=== PATIENT | male | born 1995 | race Caucasian/White ===

== ENCOUNTER 2022-10-14 10:48 | Emergency (ER) | payer OTHER, SELFPAY ==
--- NOTE | ~2022-10-14 | XR_ITS ---
EXAMINATION: XR chest 2V DATE: 10/14/2022 11:20 INDICATION: Shortness of breath TECHNIQUE: PA and lateral views of the chest are obtained. COMPARISON: None available FINDINGS: The lungs are free of acute opacities. Surgical clips and volume loss of the right hemithor ax are consistent with history of right partial pneumonectomy. No pleural effusion or pneumothorax. T he cardiomediastinal silhouette is normal. The visualized bones and soft tissues are unremarkable. IMPRESSION: 1. No acute cardiopulmonary abnormality. Reviewed, dictated and finalized at location L.
[2022-10-14 11:01] VITALS: BP 112/84; PULSE 79; RESP 16; TEMP 36.8; O2SAT 100
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
[2022-10-14 11:32] VITALS: PULSE 71; RESP 20; O2SAT 98
[2022-10-14] MEDS: ALBUTEROL SULFATE NEB 2.5 MG/3 ML INH INHALATION (11:50)
[2022-10-14] MEDS: methylPREDNISolone SOD SUCC 125 MG VIAL IM (11:50)
[2022-10-14] MEDS: IPRATROPIUM BR 0.02% INH SOLN 0.5 MG/2.5 ML VIAL INHALATION (11:50)
== END 2022-10-14 12:36 | disposition home or self-care (01) ==
PROVIDERS: Emergency Provider Nurse Practitioner Family
DX: T78.40XA Allergy, unspecified, initial encounter (principal)
CPT/HCPCS: 71046; 94640; 96372; 99213; G0463; J2930

== ENCOUNTER 2024-10-01 10:10 | Emergency (ER) | payer OTHER, SELFPAY ==
--- NOTE | 2024-10-01 10:19 | ED.GENADULT ---
HPI - General Adult General Chief complaint: Recheck/Abnormal Lab/Rx Stated complaint: Medication Refill Time Seen by Provider: 10/01/24 10:56 Mode of arrival: ambulatory Limitations: no limitations History of Present Illness HPI narrative: 28-year-old male presents with concern for medication refill. Reports he lost his PCP and is in between providers. He is currently trying to find a provider that takes his insurance. He has history of chronic injury and takes several medications for PTSD, pain and anxiety. He is looking for refill on his gabapentin, albuterol, escitalopram and prazosin. He reports has been 2 days since he had his medication. Related Data Home Medications Medication Instructions Recorded Confirmed Last Taken Type escitalopram oxalate 10 mg tablet mg 10/01/24 Unknown History gabapentin 300 mg capsule 300 mg PO TID 10/01/24 Unknown History gabapentin 600 mg tablet mg 10/01/24 Unknown History oxycodone PO 10/01/24 Unknown History prazosin 2 mg capsule mg 10/01/24 Unknown History Allergies Allergy/AdvReac Type Severity Reaction Status Date / Time shellfish derived Allergy Unknown Unknown Verified 10/01/24 10:24 Penicillins Allergy Rash Verified 10/01/24 10:24 adhesive tape AdvReac Rash Verified 10/01/24 10:24 Review of Systems Review of Systems: CONSTITUTIONAL: Denies malaise, chills, sweats, or fever. CARDIOVASCULAR: Denies chest pain, palpitations, or edema. RESPIRATORY: Denies cough or dyspnea. PSYCHIATRIC: Reports anxiety All systems reviewed & are unremarkable except as noted in HPI and below PMFSH Comments At time of signature, agree with nursing past medical, surgical, social and family history. There is no relevant family history pertinent to the presenting complaint Exam Narrative: GENERAL: Well-appearing, well-nourished, and in no acute distress. HEAD: Normocephalic, atraumatic. EYES: PERRLA, sclera clear, and EOMI. ENT: Nares clear. Mucous membranes moist. NECK: Supple. CHEST: No respiratory distress. Speaks in full sentences. HEART: Regular rate and rhythm. N SKIN: Warm, dry, no visible rash. NEURO: Alert and oriented x3. PSYCH: Normal mood and affect Course Course Emergency Course: Patient was advised that we cannot fill medications long-term. He was given 30 day refills. He was given resources for finding a primary and was referred to Dr. Wilkerson Patient is aware of, understands and agrees to treatment plan. Anticipatory guidance given. Patient agrees to follow-up as directed and is aware of reasons to seek care at the emergency department. Portions of this record may have been created with voice recognition software Level of Care: Express Care Visit Vital Signs Vital signs: Reviewed. Medical Decision Making MDM Narrative Medical decision making narrative: The patient was evaluated by myself in the express care. History is obtained from patient who is an independent historian and physical exam was performed. Available medical records were reviewed at this time. Exam findings show no acute concerns or changes; patient is non-toxic appearing and is in no distress. Patient is appropriate for outpatient treatment and follow-up. I have evaluated and discussed social determinants of health with the patient that could potentially impact subsequent diagnosis and treatment plans. Differential diagnosis and treatment plan were discussed with the patient. Patient agrees with discussion and after shared medical decision making agrees with plan of care. All questions were answered to the patient's satisfaction. Critical Care Time Critical Care Time Critical Care Time: No Discharge Plan Discharge Clinical Impression: Encounter for medication refill Patient Disposition: Home Condition: Stable Instructions: General Patient Instructions Additional Instructions: 1) Please follow-up with your primary care doctor for future refills. 2) If you have any urgent concerns please go to the ER. 3) Please continue taking your home medications as usual. Having an established primary care provider is essential to your health. Please call [phone] for help finding a primary care provider in your area that accepts your insurance. Patient Language: Occitan Prescriptions: New albuterol sulfate 90 mcg/actuation HFA aerosol inhaler 2 puff INHALATION QID PRN (Reason: shortness of breath or wheezing) Qty: 8.5 0RF prazosin 2 mg capsule 2 mg PO HS Qty: 30 0RF gabapentin 300 mg capsule 300 mg PO TID Qty: 90 0RF gabapentin 600 mg tablet 600 mg PO TID Qty: 90 0RF escitalopram oxalate 10 mg tablet 10 mg PO DAILY Qty: 30 0RF No Action albuterol sulfate 90 mcg/actuation HFA aerosol inhaler 2 puff inhalation QID PRN (Reason: shortness of breath or wheezing) Qty: 8.5 0RF gabapentin 600 mg tablet gabapentin 300 mg capsule 300 mg PO TID prazosin 2 mg capsule escitalopram oxalate 10 mg tablet oxycodone [OxyContin] PO Follow-up/Referrals: PHYSICIAN,SCREEN ROLLER [Primary Care Provider] - Zafar Wilkerson MD [Physician] - (Needs PCP) Time of Disposition: 11:06
[2024-10-01 10:20] VITALS: BP 134/98; PULSE 64; RESP 20; TEMP 36.4; O2SAT 100
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
--- OUTSIDE RECORDS SUMMARY | 2024-10-01 10:44 | XMS_ITS | Referral Summary ---
Author Organization [facility] Address [address] [place] [address] Care Team Providers Care Pulp Mill Operator Name Role Phone Raciel Littlejohn MD Unavailable [phone] Raciel Littlejohn MD Primary Care Provider + Adriana Breen MD Unavailable [phone] Allergies Active Allergy Reactions Criticality Noted Date [...] (06/03/2022): Added automatically from request for surgery [id number] Hypokalemia 01/31/2022 Assessment & Plan (01/31/2022 5:52 [...] (11/01/2019): Added automatically from request for surgery [id number] Slow transit constipation 02/19/2019 Assessment & Plan [...] 02/19/2019 Assessment & Plan (04/27/2019 2:09 PM INDEPENDENT TRADER): See rectal bleeding Blood in stool 01/19/2019 Assessment & Plan (01/19/2019 2:13 PM CDT): Will check CRP and ESR. Will have colonoscopy done to rule out IBD. Pt to follow up after colonoscopy to review results. Lower abdominal pain 01/19/2019 Assessment & Plan (04/27/2019 2:05 PM INDEPENDENT TRADER): Mostly occurs in RLQ about once a [...] (01/19/2019): Added automatically from request for surgery [id number] Assessment & Plan (04/27/2019 2:09 PM INDEPENDENT TRADER): Pt says overall, blood in stool has [...] (01/19/2019): Added automatically from request for surgery [id number] Hidradenitis 06/14/2018 Overview (06/14/2018): Added automatically from request for surgery [id number] Hidradenitis axillaris 02/15/2018 Closed fracture of metacarpal bone 09/29/2013 Overview (08/20/2016): Fracture of metacarpal Polysubstance abuse Immunizations Immunization Administration Dates Next Due Tdap 11/02/2019 Social History Tobacco Use Types Packs/Day Years [...] on file Legal Sex Male 11:29 PM INDEPENDENT TRADER Gender Identity Male 12/18/2019 5:23 PM CDT Sexual Orientation Straight 12/18/2019 5: 23 PM CDT Last Filed Vital Signs Vital Sign Reading Time Taken Comments Blood Pressure 120/82 04/25/2023 1:11 PM INDEPENDENT TRADER Pulse 92 04/25/2023 1:11 PM INDEPENDENT TRADER Temperature 36.9 C (98.4 F) 04/25/2023 1:11 PM INDEPENDENT TRADER Respiratory Rate 16 04/25/2023 1:11 PM INDEPENDENT TRADER Oxygen Saturation 98% 04/25/2023 1:11 PM INDEPENDENT TRADER Inhaled Oxygen Concentration - - Weight 87.5 kg (193 lb) 04/25/2023 1:11 PM INDEPENDENT TRADER Height 182.9 cm (6') 04/25/2023 1:11 PM INDEPENDENT TRADER Body Mass Index 26.18 04/25/2023 1:11 PM INDEPENDENT TRADER Plan of Treatment Not on file Procedures Procedure Name Priority Date/Time Associated Diagnosis [...] 11:40 AM CDT 01/08/2017 11:42 AM CDT us Raciel Littlejohn MD LAB MICROBIOLOGY - GENER AL ORDERABLES Final Result KOMAL [facility] [id number] Department [place] [address] from Last 3 Months or Most Recently Relevant to Health Maintenance Insurance [facility] CHOICE PLUS [facility] [place] [facility] Advance Directives For more information, please contact: [phone] * Full Code (Latest Code Status on [...] 1:23 PM 01/31/2019 7:54 PM Care Teams Pulp Mill Operator Relationship Specialty [place] [address] [place] [address] PCP - General 01/30/22 [place] [address] [place] [address] 11/01/19 [place] [address] [place] [address] Surgeon Colon and Rectal Surgery 06/11/22
--- OUTSIDE RECORDS SUMMARY | 2024-10-01 10:44 | XMS_ITS | CONTINUITY OF CARE DOCUMENT ---
Author Name shiloh matamoros Address Unknown Organization [facility] Address [address] [place] [address] [address] [place] [address] Phone [phone] Care Team Providers Care Award Machine Operator Name Role Phone Miguel Humphreys MD Unavailable AMOR OSWALD MD Unavailable [phone] AMOR OSWALD MD Unavailable PROBLEMS Condition Status Date Provider Notes ANEMIA, IRON DEFICIENCY; active Miguel murcia MD Exposure to SARS-associated coronavirus;neg igg active Miguel Humphreys MD B12 deficiency active Miguel Humphreys MD nml folate Syncope active Gabbi [place] Nerve pain active Miguel Humphreys MD DUE TO S TAB WOUND IN CHEST Screening active Miguel Humphreys MD neg mirlande dmill Vitamin D deficiency active Miguel Herrera D Thrombocytosis active Miguel Humphreys MD FAMILY HISTORY OF HEART DISEASE active Miguel Humphreys MD dad Hidradenitis active Migule Humphreys MD ENCOUNTERS Date Type Provider Location Encounter Diag nosis 6 - 6 In-person encounter Office Visit [facility] 9 - 9 In-person encounter Office Visit Miguel Humphreys MD [facility] Nerve painScreeningVitamin D deficiencyThrombocytosisFAMILY HISTORY OF HEART DISEASEHidradenitis VITAL SIGNS Date Observation Value Provider Body Mass Index (Ratio) 30.21 kg/m2 Hever dacosta Anson Odom blood pressure, cuff size regular David Costelloby blood pressure, diastolic 70 mm[Hg] David isty [place] blood pressure, systolic 122 mm[Hg] Davidi amna Costello pulse rate 87 /min Elizabeth Tayler oxygen saturation, oximetry 97 % Elizabeth respiratory rate E&M 19 /min Elizabeth Tayler blood pressure, resting No Javier ty weight E&M 222.8 [lb_av] Elizabeth height E&M 72 [in_i] Elizabeth weight E&M 175 [lb_av] Christina Sloan Body Mass Index (Ratio) 13.56 kg/m2 Izzy Humphreys MD blood pressure, resting No Javier neves blood pressure, cuff size regular David Costello pulse rate 91 /min Elizabeth Costello oxygen saturation, oximetry 100 % Elizabeth blood pressure, diastolic 70 mm[Hg] David Costello blood pressure, systolic 130 mm[Hg] Davidi amna Costello respiratory rate E&M 18 /min Elizabeth Tayler weight E&M 100 [lb_av] Elizabeth Tayler height E&M 72 [in_i] Elizabeth [place] RESULTS Date Observation Value Provider Reference Range Interpretation Location B-12, serum 265 pg/mL [facility] [id number] ferritin, serum 9 ng/mL [facility] 30-400 Low folate, serum 4.3 ng/mL [facility] >3.0 iron saturation percent, serum 3 % [facility] 15-55 Critical low iron, serum 16 ug/dL [facility] 38-169 Low iron binding capacity, unsaturated 507 ug/dL [facility] 111-343 High iron binding capacity, total 523 ug/dL [facility] 250-450 High basophil count, absolute 0.1 x10E3/uL [facility] 0.0-0.2 Eosinophil Absolute Count 0.5 X10E3/UL [facility] 0.0-0.4 High monocyte count, blood, automated 1.0 X10E3/UL [facility] 0.1-0.9 High lymphocyte count, blood, automated 3.3 X10E3/UL [facility] 0.7-3.1 High Absolute Neutrophils 4.4 X10E3/UL [facility] 1.4-7.0 basophils as percent of blood leukocytes 1 % [facility] Not Estab. eosinophils as percent of blood leukocytes 5 % [facility] Not Estab. monocytes as percent of blood leukocytes 11 % [facility] Not Estab. lymphocytes as percent of blood leukocytes 36 % [facility] Not Estab. neutrophils as percent of blood leukocytes 47 % [facility] Not Estab. platelet count 512 X10E3/UL [facility] 150-450 High red blood cell distribution width 14.6 % [facility] 11.6-15.4 mean corpuscular hemoglobin concentration, RBC 31.3 G/DL [facility] 31.5-35.7 Low mean corpuscular hemoglobin, RBC 22.4 pg [facility] 26.6-33.0 Low mean corpuscular volume, RBC 72 fL [facility] 79-97 Low hematocrit, blood 38.7 % [facility] 37.5-51.0 hemoglobin, blood 12.1 g/dL [facility] 13.0-17.7 Low erythrocyte (RBC) count 5.39 X10E6/UL [facility] 4.14-5.80 leukocyte count, blood 9.3 X10E3/UL [facility] 3.4-10.8 HISTORY OF MEDICATION USE Medication Status Instructions Dates Provider Indications Com ments FeroSul 325 mg (65 mg iron) tablet active TAKE 1 TABLET BY MOUTH EVERY DAY Christine Gruehayleenfkhang ferrous sulfate 325 mg (65 mg iron) tablet completed ONE PER DAY - Christine Gruenenfelder FERROUS SULFATE 325 (65 FE) MG ORAL TABLET completed ONE PER DAY - Elizabeth Lester VITAMIN B-12 1000 MCG ORAL TABLET active One tablet daily Miguel Humphreys MD VITAMIN D3 1.25 MG (36138 UT) ORAL CAPSULE active one capsule by mouth weekly Miguel Humphreys MD CYCLOBENZAPRINE HCL 10 MG ORAL TABLET completed as needed on hold - Williams Odom DO #90, 30 days supply, Prescribed by AMOR OSWALD, Filled 05/25/2020 GABAPENTIN 100 MG ORAL CAPSULE completed take one tablet by mouth three times daily on hold - Williams Odom DO #90, 30 days supply, Prescribed by AMOR OSWALD, Filled 06/12/2020 SOCIAL HISTORY Date Observation Value Provider Underweight no Williams babb DO number of grandchildren Miguel Orozco NP social history reviewed E&M revi ewed - no changes required Gianna Orozco NP smoking status Never smoker Elizabeth Lester Underweight yes Miguel Gaona social history E&M S moking History: Luis A estella has never smoked. Miguel Humphreys MD social history reviewed E&M revi ewed - no changes required Miguel Humphreys MD smoking status Never smoker Elizabeth Lester INSURANCE PROVIDERS Payer name Policy type / Coverage type [place] red green party ID [facility] [id number] Other [id number] TREATMENT PLAN Date Name Performer Cardiology:will supp lement r echeck iron levels prior to next ov Williams Odom DO Cardiology:normal 30 day holter monitor n ormal LVEF on echo w/o valvular abnormalities n ormal stress test will check carotids, stop gabapentin and flexeril, increase hydration/liberalize sodium in diet; to see if this helps and start iron supplement-may be medication problem, if recurrent syncope despite above may need ILR Williams Odom DO Cardiology: supplement Gianna singer [employer] Cardiology:supplement Gianna chahal [employer] Cardiology:will supplement Tahira Doyleal [employer] Cardiology:normal 30 day holter monitor n ormal LVEF on echo w/o valvular abnormalities n ormal stress test will check carotids, try to stop gabapentin and flexeril to see if this helps and start iron supplement-may be medication problem, if continues to may need ILR Gianna Orozco [employer] Cardiology Miguel Humphreys MD Cardiology Miguel Humphreys MD Cardiology Miguel Humphreys MD Cardiology Miguel Humphreys MD Cardiology:NEG CHOL AND TSH, NEG HEPPANEL AND HIV AND RPR,. NEG CRP AND ECHO AND COLON NEG HOLTER Miguel Humphreys MD Date Name IRON AND TOTAL IRON BINDING CAPACITY FERRITIN CBC (INCLUDES DIFF/P LT) Carotid Duplex Bilat eral Stress Routine Monitor - Telemetry (Mobile Cardiac) VITAMIN B12 FOLATE, SERUM COVID19 High Affinit y Antibodies (LC) IRON AND TOTAL IRON BINDING CAPACITY FERRITIN CBC (INCLUDES DIFF/P LT) Complete Echo HISTORY OF PROCEDURES Procedure Date Procedure Name Provider Procedure Notes S tatus Event Monitor Miguel Humphreys MD compl eted MARION Humphreys MD complete d MARION Pina MD complet ed
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
--- OUTSIDE RECORDS SUMMARY | 2024-10-01 10:45 | XMS_ITS | CONTINUITY OF CARE DOCUMENT ---
Author Name shiloh matamoros Address Unknown Organization [facility] Address [address] [place] [address] [address] [place] [address] Phone [phone] Care Team Providers Care Highway Painter Name Role Phone Miguel Humphreys MD Unavailable AMOR OSWALD MD Unavailable [phone] AMOR OSWALD MD Unavailable PROBLEMS Condition Status Date Provider Notes ANEMIA, IRON DEFICIENCY; active Miguel murcia MD Exposure to SARS-associated coronavirus;neg igg active Miguel Humphreys MD B12 deficiency active Miguel Humphreys MD nml folate Syncope active Gabbi Camak Nerve pain active Miguel Humphreys MD DUE TO S TAB WOUND IN CHEST Screening active Miguel Humphreys MD neg mirlande dmill Vitamin D deficiency active Miguel Herrera D Thrombocytosis active Miguel Humphreys MD FAMILY HISTORY OF HEART DISEASE active Miguel Humphreys MD dad Hidradenitis active Miguel Humphreys MD ENCOUNTERS Date Type Provider Location Encounter Diag nosis 6 - 6 In-person encounter Office Visit Williams Odom DO [facility] 9 - 9 In-person encounter Office Visit Miguel Humphreys MD [facility] Nerve painScreeningVitamin D deficiencyThrombocytosisFAMILY HISTORY OF HEART DISEASEHidradenitis VITAL SIGNS Date Observation Value Provider Body Mass Index (Ratio) 30.21 kg/m2 Hever dacosta Anson Odom blood pressure, cuff size regular David Costelloby blood pressure, diastolic 70 mm[Hg] David isty [place] blood pressure, systolic 122 mm[Hg] Davidi amna [...] Elizabeth Tayler height E&M 72 [in_i] Elizabeth [place] RESULTS Date Observation Value Provider Reference Range [...] Miguel Humphreys MD VITAMIN D3 1.25 MG (13911 UT) ORAL CAPSULE active one capsule by [...] Payer name Policy type / Coverage type [place] red constitution party ID [facility] [id number] Other [id number] TREATMENT PLAN Date Name Performer Cardiology:will supp [...] Williams Odom DO Cardiology: supplement Gianna singer [employer] SALES [employer]OCIATE Cardiology:supplement Gianna chahal [employer]INE JEWELRY SALES ASSOCIATE Cardiology:will supplement Tahira Doyleal FINE JEWELRY SALES ASSOCIATE Cardiology:normal 30 day holter monitor n ormal LVEF on echo w/o valvular abnormalities n ormal stress test will check carotids, try to stop gabapentin and flexeril to see if this helps and start iron supplement-may be medication problem, if continues to may need ILR Gianna Orozco FINE JEWELRY SALES ASSOCIATE Cardiology Miguel Humphreys MD Cardiology Miguel Humphreys [...]
== END 2024-10-01 11:12 | disposition home or self-care (01) ==
PROVIDERS: Emergency Provider Nurse Practitioner
DX: Z76.0 Encounter for issue of repeat prescription (principal); F41.9 Anxiety disorder, unspecified; F43.10 Post-traumatic stress disorder, unspecified
CPT/HCPCS: 99211; G0463

== ENCOUNTER 2025-05-02 11:45 | Emergency (ER) | payer OTHER, SELFPAY ==
[2025-05-02 11:56] VITALS: BP 128/85; PULSE 70; RESP 18; TEMP 36.6; O2SAT 100
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
--- OUTSIDE RECORDS SUMMARY | 2025-05-02 12:56 | XMS_ITS | Clinical Summary ---
Author Organization [facility] Address [address] [address] Phone Care Team Providers Care Outside Cutter Hand Name Role Phone Provider, None Primary Care Provider Unavailabl e Medications methylPREDNISo lone (MEDROL DOSPACK) 4 MG Tablet Therapy Pack See product package insert for dosing schedule 21 Tablet 5 Active albuterol 108 (90 Base) MCG/ACT Aerosol Solution take 2 Puffs by inhalation every 4 hours as needed for Wheezing. 18 g 5 Active predniSONE (DELTASONE) 50 MG Tablet Take 1 Tablet by mouth daily. 5 Tablet 5 Active gabapentin (NEURONTIN) 300 MG Capsule Take 1 Capsule by mouth 3 times daily. 90 Capsule 5 Active albuterol 108 (90 Base) MCG/ACT Aerosol Solution take 2 Puffs by inhalation every 6 hours as needed for Wheezing. 18 g 5 Active albuterol (PROVENTIL, VENTOLIN) (2.5 MG/3ML) 0.083% Nebulizer Soln 3 mL by Nebulization route every 6 hours as needed for Wheezing for up to 30 days. 75 mL 5 04/14/20 25 Encounters Date Type Department Care Team Description 03/15/2025 1:10 PM CDT - 03/15/2025 3:38 PM CDT Emergency [facility] Emergency [address] [place] [address] Ramana Dodd MD Mild intermittent asthma with exacerbation Discharge Disposition: Discharged to home or Selfcare 03/15/2025 Travel from Last 3 Months Social History Tobacco Use Types Packs/Day Years Used Date Smoking Tobacco: Never Assessed Sex and Gender Information Value Date Recorded Sex Assigned at Not on file Legal Sex Male 11:34 PM CDT Gender Identity Not on file Sexual Orientation Not on file Last Filed Vital Signs Vital Sign Reading Time Taken Comments Blood Pressure 112/79 03/15/2025 3:30 PM CDT Pulse 68 03/15/2025 3:30 PM CDT Temperature 36.8 C (98.2 F) 03/15/2025 1:07 PM CDT Respiratory Rate 13 03/15/2025 3:30 PM CDT Oxygen Saturation 96% 03/15/2025 3:30 PM CDT Inhaled Oxygen Concentration - - Weight 88.5 kg (195 lb) 03/15/2025 1:07 PM CDT Height 182.9 cm (6') 03/15/2025 1:07 PM CDT Body Mass Index 26.45 03/15/2025 1:07 PM CDT Plan of Treatment Health Maintenance Due Date Last Done Comments Hepatitis C Virus (HCV) Screening 1995 Varicella Immunization (1 of 2 - 13+ 2-dose series) 12/18/2007 Influenza Immunization (#1) 2025 SARS-COV-2 Immunization ( season) 2025 Respiratory Syncytial Virus (RSV) Immunization (Adult) (1 - 1-dose 75+ series) 2069 Hepatitis B Immunization Completed 996, 01/14/1995, 1994 TdaP Immunization Completed 11/02/2019, 02/23/2006 Human Papillomavirus (HPV) Immunization (No Doses Required) Completed Meningococcal Immunization (ACWY) Aged Out No longer eligible b ased on patient's age to complete this topic Pneumococcal Immunization Combined Aged Out No longer eligible b ased on patient's age to complete this topic Rotavirus Immunization Aged Out No lo nger eligible based on patient's age to complete this topic Procedures Procedure Name Priority Date/Time Associated Diagnosis Comments XR CHEST SINGLE VIEW PORTABLE STAT 03/15/2025 2:32 PM CDT EKG 12 LEAD STAT 03/15/2025 1:28 PM CDT AEROSOL NEBULIZER-INITIAL STAT 03/15/2025 1:20 PM CDT EKG SCAN 03/15/2025 12:00 AM CDT from Last 3 Months Results * XR CHEST SINGLE VIEW PORTABLE (03/15/2025 2:32 PM CDT) Anatomical Region Laterality Modality Chest N/A Digital Radiogra phy 03/15/2025 2:32 PM CDT Impressions 03/16/2025 7:40 AM CDT IMPRESSION: Chronic small right pleural effusion. Narrative 03/16/2025 7:40 AM CDT DICTATING PHYSICIAN: Brendon Holt M.D., [facility] Exam: XR CHEST SINGLE VIEW PORTABLE 03/15/2025 2:32 PM Patient : 1995 Age: 29 years Gender: Male Number of Images: 1 view Indication: SOB x 2 days Comparison: 01/11/2025 FINDINGS: EKG leads project over the chest. The lungs are clear. Small right pleural effusion, similar to the prior study. No pneumothorax. The cardiac silhouette is unremarkable for size. The aorta is unremarkable. Procedure Note Brendon Echols MD - 03/16/2025 DICTATING PHYSICIAN: Brendon Holt M.D., [facility] Exam: XR CHEST SINGLE VIEW PORTABLE 03/15/2025 2:32 PM Patient : 1995 Age: 29 years Gender: Male Number of Images: 1 view Indication: SOB x 2 days Comparison: 01/11/2025 FINDINGS: EKG leads project over the chest. The lungs are clear. Small right pleural effusion, similar to the priorstudy. No pneumothorax. The cardiac silhouette is unremarkable for size. The aorta is unremarkable. IMPRESSION: Chronic small right pleural effusion. us Ramana Dodd MD IMG DIAGNOSTIC ORDERABLES Final Result * EKG 12 LEAD (03/15/2025 1:28 PM CDT) Ventricular Rate 71 BPM EXTERNAL EKG Atrial Rate 71 BPM EXTERNAL EKG P-R Interval 168 ms EXTERNAL EKG QRS Duration 92 ms EXTERNAL EKG Q-T Duration 386 ms EXTERNAL EKG QTC CALCULATION 419 ms EXTERNAL EKG P [place] 73 degrees EXTERNAL EKG R [place] 77 degrees EXTERNAL EKG T [place] 66 degrees EXTERNAL EKG 03/15/2025 1:28 PM CDT Impressions EXTERNAL EKG - 03/15/2025 10:03 PM CDT Normal sinus rhythm Normal ECG When compared with ECG of 11-JAN-2025 17:05, Nonspecific T wave abnormality no longer evident in Inferior leads Confirmed by Nimo Bush ([id number]) on 03/15/2025 10:03:09 PM Narrative Procedure Note Nimo Bush MD PhD - 03/15/2025 IMPRESSION: Normal sinus rhythm Normal ECG When compared with ECG of 11-JAN-2025 17:05, Nonspecific T wave abnormality no longer evident in Inferior leads Confirmed by Nimo Bush ([id number]) on 03/15/2025 10:03:09 PM us Ramana Dodd MD IMG ECG ORDERABLES Final Result EXTERNAL EKG * EKG SCAN (03/15/2025 12:00 AM CDT) 03/15/2025 us Provider Scan IMG ECG ORDERABLES Final Result RESULTING AGENCY from Last 3 Months Insurance MEDICAID [facility] Care Teams Outside Cutter Hand Relationship Specialty Start Date End Date Provider, None [place] PCP - General 01/11/25
--- OUTSIDE RECORDS SUMMARY | 2025-05-02 12:56 | XMS_ITS | Patient Health Record ---
Author Organization [facility] Address [address] [place] [address] Care Team Providers Care Manufacturing Intern Name Role Phone Rashmi Morton Unavailable [phone] Reason For Referral No Information Medications Medication SIG (Take, Route, Frequency, Duration) Notes Start Date End Date Status Prazosin HCl 1 MG Capsule Oral 02/23/2022 Active Cyclobenzaprine HCl 10 MG Tablet Oral 02/23/2022 Active metroNIDAZOLE 500 MG Tablet Oral 02/23/2022 Active Sertraline HCl 50 MG Tablet Oral 02/23/2022 Active Ferrous Sulfate 325 (65 Fe) MG Tablet Oral 02/23/2022 Active HYDROcodone-Acetaminophen 5-325 MG Tablet Oral 02/23/2022 Active Gabapentin 100 MG Capsule Oral 02/23/2022 Active Social History Social History Additional Details Category Social Info Options Details Migrated Social History Migrated Social History Alcohol Intake: Moderate 09/10/2021,Tobacco Years: Former smoker 10/05/2021 Plan Of Treatment No Information Insurance Providers Payer Name Payer Address Payer Phone Subscriber Number Group Number Insured Name Patient Relationship to Insured Coverage Start Date Coverage End Date [employer] [employer] [address] [place] [address] [id number] DIOGO EDMONDS Self - patient is the insured Medical (General) History Surgical History Surgery Date(Month/Year) Adjustment of lid position ([id number])
== END 2025-05-02 12:26 | disposition home or self-care (01) ==
DX: J45.20 Mild intermittent asthma, uncomplicated (principal)
CPT/HCPCS: 99211; G0463